=== PATIENT | male | born 1955 | race Caucasian/White ===

== ENCOUNTER 2023-09-10 10:44 | Emergency (ER) | payer MEDICARE, BC ==
[2023-09-10] MEDS ORDERED: Sodium Chloride 0.9% 10 ML Syringe FLUSH PRN (11:14)
[2023-09-10 11:37] LABS: BASOPHILS PERCENT AUTO 0.3 % (0.0-1.0); EOSINOPHILS PERCENT AUTO 0.1 % (0.0-6.0); HEMATOCRIT 41.3 % (42.0-52.0); IMMATURE GRAN ABSOLUTE AUTO 0.04 K/mm3 (0.00-0.05); IMMATURE GRAN PERCENT AUTO 0.4 % (0.0-0.4); LYMPHOCYTES ABSOLUTE AUTO 3.2 K/mm3 (1.0-4.8); MEAN CORPUSCULAR HEMOGLOBIN 30.3 pg (28.0-32.0); MEAN CORPUSCULAR HGB CONC 33.9 g/dl (32.0-36.0); MEAN CORPUSCULAR VOLUME 89.4 fl (83.0-99.0); MEAN PLATELET VOLUME 10.6 fl (9.4-12.4); MONOCYTES PERCENT AUTO 9.7 % (0.0-8.0); NEUTROPHILS ABSOLUTE AUTO 6.3 K/mm3 (1.8-7.7); NEUTROPHILS PERCENT AUTO 59.5 % (41.0-71.0); PLATELET COUNT,PLT 141 K/mm3 (150-400); RED BLOOD CELL COUNT 4.62 M/mm3 (4.52-5.90)
[2023-09-10] MEDS ORDERED: Diltiazem 25 MG/5 ML SDV IVPUSH ONE (11:49)
[2023-09-10] MEDS ORDERED: Sodium Chloride 0.9% 1,000 ML IV SCH (12:00)
[2023-09-10 12:08] LABS: ALBUMIN 3.2 g/dl (3.4-5.0); ANION GAP 16.2 (5-15); BILIRUBIN TOTAL 1.8 mg/dL (0.2-1.0); BUN/CREATININE RATIO 18.7 (14-18); CALCIUM 8.9 mg/dL (8.5-10.1); CREATININE 1.5 mg/dL (0.7-1.3); EST CRCL DRUG DOSING (CG) 50.9 mL/min; MAGNESIUM 2.1 mg/dL (1.8-2.4); POTASSIUM,K 4.2 mEq/L (3.5-5.1); PROTEIN TOTAL,TP 6.5 g/dl (6.4-8.2); T4 FREE 1.35 ng/dL (0.76-1.46); TSH 1.205 uIU/mL (0.358-3.74)
[2023-09-10 12:20] LABS: APPEARANCE,URINE CLEAR (Clear); BILIRUBIN,URINE NEGATIVE (Negative); COLOR,URINE YELLOW (Yellow); GLUCOSE,URINE NEGATIVE (Negative); KETONES,URINE TRACE (Negative); LEUKOCYTE ESTERASE,URINE 1+ (Negative); NITRITE,URINE NEGATIVE (Negative); OCCULT BLOOD,URINE NEGATIVE (Negative); PH,URINE 6.5 (5.0-8.0); PROTEIN,URINE NEGATIVE (Negative)
[2023-09-10 12:31] LABS: CORONAVIRUS COVID-19 NAA NEGATIVE (NEGATIVE); INFLUENZA A NAA NEGATIVE (NEGATIVE); RESPIRATORY SYNCYTIAL VIR NAA NEGATIVE (NEGATIVE)
[2023-09-10] MEDS ORDERED: Amiodarone In Dextrose,Iso-Osm 200 ML IV SCH (12:45)
[2023-09-10] MEDS ORDERED: Diltiazem 180 MG Cap.CD PO ONE (15:19)
[2023-09-10] MEDS ORDERED: Apixaban 5 MG Tab PO ONE (15:21)
[2023-09-10] MEDS ORDERED: Amiodarone 200 MG Tab PO ONE (15:21)
[2023-09-10 16:41] LABS: BACTERIA,URINE MODERATE /hpf (FEW); MUCUS,URINE FEW /hpf (FEW); RBC,URINE 0-5 /hpf (0-5)
== END 2023-09-10 16:30 | disposition home or self-care (01) ==
LOC: JD.ED 10:44
DX: I48.91 Unspecified atrial fibrillation (principal); N18.31 Chronic kidney disease, stage 3a; Z20.822 Contact with and (suspected) exposure to COVID-19; Z79.01 Long term (current) use of anticoagulants; Z79.899 Other long term (current) drug therapy
CPT/HCPCS: 0241U; 36415; 71046; 80053; 81001; 83735; 84439; 84443; 84484; 85025; 93005; 96361; 96365; 96366; 96375; 99285; A9270; J0282; J3490; J7030

== ENCOUNTER 2025-07-18 13:56 | Emergency (ER) | payer MEDICARE, BC ==
[2025-07-18] MEDS ORDERED: Sodium Chloride 0.9% 10 ML Syringe FLUSH PRN (15:46)
[2025-07-18] MEDS: Diltiazem 25 MG/5 ML SDV IVPUSH ONE (16:23)
[2025-07-18 16:46] LABS: BASOPHILS ABSOLUTE AUTO 0.0 K/mm3 (0.0-0.2); BASOPHILS PERCENT AUTO 0.5 % (0.0-1.0); EOSINOPHILS ABSOLUTE AUTO 0.0 K/mm3 (0.0-0.4); EOSINOPHILS PERCENT AUTO 0.5 % (0.0-6.0); IMMATURE GRAN ABSOLUTE AUTO 0.02 K/mm3 (0.00-0.05); IMMATURE GRAN PERCENT AUTO 0.2 % (0.0-0.4); LYMPHOCYTES ABSOLUTE AUTO 2.7 K/mm3 (1.0-4.8); LYMPHOCYTES PERCENT AUTO 31.1 % (24.0-44.0); MEAN PLATELET VOLUME 13.0 fl (9.4-12.4); MONOCYTES ABSOLUTE AUTO 0.6 K/mm3 (0.0-0.8); MONOCYTES PERCENT AUTO 7.2 % (0.0-8.0); NEUTROPHILS ABSOLUTE AUTO 5.2 K/mm3 (1.8-7.7); NEUTROPHILS PERCENT AUTO 60.5 % (41.0-71.0); NRBC ABSOLUTE 0.00 (0.00-0.02); NRBC PERCENT 0.0 % (0.0-0.2); PLATELET COUNT,PLT 149 K/mm3 (150-400); RED BLOOD CELL COUNT 5.02 M/mm3 (4.52-5.90); WHITE BLOOD CELL COUNT,WBC 8.63 K/mm3 (3.9-11.3)
[2025-07-18 16:55] LABS: APPEARANCE,URINE CLEAR (Clear); GLUCOSE,URINE NEGATIVE (Negative); OCCULT BLOOD,URINE NEGATIVE (Negative)
[2025-07-18 17:14] LABS: EPITHELIAL CELLS,URINE 0-5 /hpf (0-5)
[2025-07-18 17:20] LABS: CORONAVIRUS COVID-19 NAA NEGATIVE (NEGATIVE); INFLUENZA A NAA NEGATIVE (NEGATIVE); RESPIRATORY SYNCYTIAL VIR NAA NEGATIVE (NEGATIVE)
[2025-07-18 17:24] LABS: A/G RATIO 1.4 (1-2); ALANINE AMINOTRANSFERASE,ALT 27.0 U/L (16-63); ASPARTATE AMNIOTRANSFERASE,AST 24.0 U/L (15-37); BILIRUBIN TOTAL 1.4 mg/dL (0.2-1.0); BLOOD UREA NITROGEN,BUN 53.0 mg/dL (7-18); CARBON DIOXIDE,CO2 22.0 mEq/L (21-32); CHLORIDE,CL 103.0 mEq/L (98-107); CREATININE 2.2 mg/dL (0.7-1.3); EST CRCL DRUG DOSING (CG) 33.75 mL/min; ESTIMATED GFR 32.0 mL/min (>60); GLUCOSE RANDOM 99.0 mg/dL (70-99); PROTEIN TOTAL,TP 6.5 g/dl (6.4-8.2); SODIUM,NA 137.0 mEq/L (136-145); TROPONIN I HIGH SENSITIVITY 49.0 pg/mL (<=76)
[2025-07-18 17:29] LABS: POTASSIUM,K 4.5 mEq/L (3.5-5.1)
[2025-07-18 17:31] LABS: TSH 1.615 uIU/mL (0.358-3.74)
[2025-07-18] MEDS: Furosemide 40 MG/4 ML VIAL IVPUSH ONE (19:30)
== END 2025-07-18 21:59 ==
LOC: JD.ED 13:56
DX: I48.91 Unspecified atrial fibrillation (principal); I50.9 Heart failure, unspecified; N17.9 Acute kidney failure, unspecified
CPT/HCPCS: 36415; 71045; 80053; 81001; 83880; 84443; 84484; 85025; 87637; 93005; 93970; 96365; 96366; 96375; 96376; 99285; J1163; J1938; J3490